=== PATIENT | female | born 1980 | race African-American/Black ===

== ENCOUNTER 2017-05-18 21:45 | Emergency (ER) | payer OTHER ==
[~2017-05-18] VITALS: Ht 162.6 cm; Wt 76.0 kg
[~2017-05-18 21:45] MED LIST: ALBU8.5H3 IH
[2017-05-18 22:12] VITALS: BP 140/80
[2017-05-18] MEDS ORDERED: DiphenhydrAMINE HCL 50 MG/ML VIAL IVP ONE (22:30)
[2017-05-18] MEDS ORDERED: FAMOTIDINE 10 MG/ML 2 ML VIAL IVP ONE (22:30)
[2017-05-18] MEDS ORDERED: MethylPREDNISolone SOD SUCC 125 MG/2 ML VIAL IVP ONE (22:30)
== END 2017-05-18 23:12 | disposition home or self-care (01) ==
LOC: EMS 21:46
DX: T78.40XA Allergy, unspecified, initial encounter (principal); J45.909 Unspecified asthma, uncomplicated; Y92.89 Other specified places as the place of occurrence of the external cause
CPT/HCPCS: 96374; 96375; 99284; J1200; J2930; J3490